=== PATIENT | female | born 2005 | race Caucasian/White ===

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

== ENCOUNTER 2023-03-26 01:03 | Emergency (ER) | payer OTHER, SELFPAY ==
[2023-03-26 01:05] VITALS: BP 140/82; PULSE 114; RESP 20; TEMP 37.3; O2SAT 97
[2023-03-26 01:50] LABS: Strep Group A RT-PCR NOT DETECTED (Negative)
[2023-03-26 02:02] LABS: SARS-CoV-2 RNA PCR Positive (Negative)
[2023-03-26 02:03] LABS: Influenza A QL RT-PCR Negative (Negative); Influenza B QL RT-PCR Negative (Negative); RSV RNA, RT-PCR Negative (Negative)
--- NOTE | 2023-03-26 02:09 | ED.URI ---
HPI - URI/Sore Throat General Chief Complaint: Upper Respiratory Infection Stated Complaint: fever Source: patient Mode of arrival: ambulatory Limitations: no limitations History of Present Illness HPI Narrative: Patient is a 18-year-old female with cough, congestion and sore throat. She has not been feeling well for the past 2 days. MD elicited complaint: cough and sore throat Onset (ago): day(s) (2) Consistency: constant Severity: moderate Description of mucous: clear Able to tolerate fluids by mouth: Yes Exacerbating factors: nothing Relieving factors: nothing Context: sick contacts Associated symptoms: myalgias, headache, nasal congestion, sore throat and cough Treatments prior to arrival: none Related Data Home Medications Medication Instructions Recorded Confirmed metformin 500 mg tablet 500 mg PO BID 04/04/21 03/26/23 spironolactone 50 mg tablet 50 mg PO DAILY 04/04/21 03/26/23 escitalopram oxalate 20 mg tablet 20 mg PO DAILY 03/26/23 03/26/23 Allergies Allergy/AdvReac Type Severity Reaction Status Date / Time midazolam Allergy Intermediate Unknown Verified 04/04/21 11:28 [email or web address] [From Omnicef] Allergy Unknown Verified 04/04/21 11:28 Penicillins Allergy Unknown Verified 04/04/21 11:28 phenobarbital Allergy Unknown Verified 04/04/21 11:28 Review of Systems Review of Systems: All systems reviewed & are unremarkable except as noted in HPI and below Constitutional: Constitutional: Reports no additional constitutional complaints Eyes: Eyes: Reports no additional eye complaints ENT: Reports system reviewed and no additional complaints, except as documented Cardiovascular: Cardiovascular: Reports no additional cardiovascular complaints Respiratory: Respiratory: Reports no additional respiratory complaints Gastrointestinal: Gastrointestinal: Reports no additional gastrointestinal complaints Genitourinary: Genitourinary: Reports no additional female genitourinary complaints Musculoskeletal: Musculoskeletal: Reports no additional musculoskeletal complaints Integumentary/Breasts: Skin/Breast: Reports system reviewed and no additional complaints, except as docu Neurologic: Reports system reviewed and no additional complaints, except as documented Psychiatric: Psychiatric: Reports no additional psychiatric complaints Endocrine: Endocrine: Reports no additional endocrine complaints Hematologic/Lymphatic: Hematologic/Lymphatic: Reports no additional hematologic/lymphatic complaints Allergic/Immunologic: Allergic/Immunologic: Reports no additional allergic/immunologic complaints PMFSH Past Medical History Medical History Ovarian cyst UTI (urinary tract infection) Exam Const: General: healthy appearing and no acute distress Nutritional Appearance: well nourished HENMT: Head: normal to inspection Ears: external ears normal Face/Nose/Sinus: Normal external nose present Eyes: Conjunctivae: conjunctivae normal Pupils: Equal, round and reactive pupils present EOM: EOMs intact bilaterally Neck: Neck: normal visual inspection Chest: Chest palpation & inspection: normal inspection of the chest Resp: Effort & Inspection: normal respiratory effort and not labored Auscultation: clear to auscultation bilaterally and no crackles Cardio: Rate: regular rate Rhythm: regular rhythm Heart sounds: no murmurs GI: Inspection: non-distended GI Palp: Yes Soft to palpation, No Tenderness to palpation present (GI) and No Guarding due to palpation present (GI) Auscultation: normal bowel sounds : General: Yes bladder normal to palpation Back/Spine/Pelvis: Back: no CVA tenderness Skin: General skin exam: normal color Rashes: no rashes Wounds: no wounds Neuro: General: patient oriented x3 Cranial nerves: Yes Nystagmus not present Speech: normal speech Extrem: General: normal to inspection Psych: Mental Status: mental status grossly normal
[2023-03-26 02:30] VITALS: BP 133/77; PULSE 100; RESP 18; TEMP 37.1; O2SAT 98
== END 2023-03-26 02:31 | disposition home or self-care (01) ==
PROVIDERS: Emergency Provider Emergency Medicine; PCP Family Medicine
DX: U07.1 COVID-19 (principal); Z79.84 Long term (current) use of oral hypoglycemic drugs; Z79.899 Other long term (current) drug therapy
CPT/HCPCS: 87637; 87651; 99283

== ENCOUNTER 2023-06-01 18:13 | Emergency (ER) | payer OTHER, SELFPAY ==
--- NOTE | ~2023-06-01 | XR_ITS ---
EXAMINATION: XR chest 2V DATE: 06/01/2023 21:27 INDICATION: Shortness of breath and dizziness TECHNIQUE: AP and lateral views of the chest are obtained. COMPARISON: 05/02/2013 FINDINGS: The lung volumes are low. The lungs are free of acute opacities. No pleural effusion or pne umothorax. The cardiomediastinal silhouette is normal. The visualized bones and soft tissues are unre markable. IMPRESSION: 1. No acute cardiopulmonary abnormality. Reviewed, dictated and finalized at [facility]. SICS TEACHER
[2023-06-01 19:01] VITALS: BP 137/83; PULSE 92; RESP 16; TEMP 36.4; O2SAT 100
[2023-06-01 20:29] VITALS: O2SAT 100
[2023-06-01 20:31] VITALS: BP 138/84; PULSE 83; RESP 18; O2SAT 100
--- NOTE | 2023-06-01 20:45 | ECG_ITS ---
Measurements Intervals [place] Rate: 87 P: 32 WI: 200 QRS: -6 QRSD: 98 T: 11 QT: 345 QTc: 417 Interpretive Statements SINUS RHYTHM BORDERLINE T WAVE ABNORMALITY- INFERIOR LEADS BORDERLINE ECG NO PREVIOUS ECG AVAILABLE FOR COMPARISON Electronically Signed On 06-02-2023 9:00:18 PARAEDUCATOR by Roger Rodriguez D.O.
--- NOTE | 2023-06-01 21:01 | ED.GENADULT ---
HPI - General Adult General Chief complaint: Shortness of Breath/Dyspnea Stated complaint: sob, dizzy Time Seen by Provider: 06/01/23 20:25 History of Present Illness HPI narrative: Patient is a 18-year-old female who presents ER with shortness of breath and feeling off. She recently has stopped her Lexapro and was switched to Effexor. She then stop that and has been started on bupropion. No depression or self-harm thoughts. No fevers or chills or sweats. No productive cough. She just feels like she is slower to respond to things. She is concerned she could be having allergic reaction. Related Data Home Medications Medication Instructions Recorded Confirmed metformin 500 mg tablet 500 mg PO BID 04/04/21 03/26/23 spironolactone 50 mg tablet 50 mg PO DAILY 04/04/21 03/26/23 escitalopram oxalate 20 mg tablet 20 mg PO DAILY 03/26/23 03/26/23 Allergies Allergy/AdvReac Type Severity Reaction Status Date / Time midazolam Allergy Intermediate Unknown Verified 06/01/23 20:32 [email or web address] [From Omnicef] Allergy Unknown Verified 06/01/23 20:32 Penicillins Allergy Unknown Verified 06/01/23 20:32 phenobarbital Allergy Unknown Verified 06/01/23 20:32 Review of Systems Review of Systems: All systems reviewed & are unremarkable except as noted in HPI and below Constitutional: Constitutional: Reports no additional constitutional complaints ENT: Reports system reviewed and no additional complaints, except as documented Cardiovascular: Cardiovascular: Reports no additional cardiovascular complaints Respiratory: Respiratory: Denies chest congestion, Denies cough, Reports dyspnea and Denies wheezing Gastrointestinal: Gastrointestinal: Reports no additional gastrointestinal complaints Neurologic: Denies syncope, Denies headache(s), Denies focal weakness and Denies numbness Comments: Lightheaded PMFSH Past Medical History Medical History (Updated 06/01/23 @ 21:59 by Hank Khan MD) Anxiety Ovarian cyst Polycystic ovarian syndrome UTI (urinary tract infection) Exam Narrative: GENERAL: Well-appearing, well-nourished, and in no acute distress. HEAD: Normocephalic, atraumatic. EYES: PERRL and EOMI. ENT: Mucous membranes moist. NECK: Supple. CHEST: Clear to auscultation. No respiratory distress. HEART: Regular rate and rhythm. Normal peripheral pulses. ABDOMEN: Soft, nontender, nondistended. EXTREMITIES: Normal range of motion. No edema. SKIN: Warm, dry, no rash. NEURO: Alert and oriented x3. PSYCH: Normal mood and affect. Course Course Emergency Course: imaging /EKG unremarkable. Blood work normal. Urinalysis may obtain a jiang but does have an appearance of UTI. Will be started on oral antibiotics for home. Vital Signs Vital signs: Vital Signs Temperature 97.6 F 06/01/23 19:01 Pulse Rate 92 06/01/23 19:01 Respiratory Rate 16 06/01/23 19:01 Blood Pressure 137/83 06/01/23 19:01 Pulse Oximetry 100 06/01/23 19:01 Oxygen Delivery Room Air 06/01/23 19:01 Temperature 97.6 F 06/01/23 19:01 Pulse Rate 83 06/01/23 20:31 Respiratory Rate 18 06/01/23 20:31 Blood Pressure 138/84 06/01/23 20:31 Pulse Oximetry 100 06/01/23 20:31 Oxygen Delivery Room Air 06/01/23 20:31 Medical Decision Making Vital Signs Vital Signs: Vital Signs Temperature 97.6 F 06/01/23 19:01 Pulse Rate 92 06/01/23 19:01 Respiratory Rate 16 06/01/23 19:01 Blood Pressure 137/83 06/01/23 19:01 Pulse Oximetry 100 06/01/23 19:01 Oxygen Delivery Room Air 06/01/23 19:01 Temperature 97.6 F 06/01/23 19:01 Pulse Rate 83 06/01/23 20:31 Respiratory Rate 18 06/01/23 20:31 Blood Pressure 138/84 06/01/23 20:31 Pulse Oximetry 100 06/01/23 20:31 Oxygen Delivery Room Air 06/01/23 20:31 Lab Data 06/01/23 21:07 06/01/23 21:07 Labs: Lab Results 06/01/23 06/01/23 Range/Units 20:55 21:07 WBC 9.7 (4.5-1
[2023-06-01] MEDS: SODIUM CHLORIDE 0.9% IV 1,000 ML 999 ML IV CONT (21:06)
[2023-06-01 21:15] LABS: Basophils Percent Auto 0.3 % (0.2-1.2); Eosinophils Absolute Auto 0.1 K/mm3 (0-0.3); Eosinophils Percent Auto 1.3 % (0-4.4); Hematocrit 38.6 % (37.0-47.0); Hemoglobin 12.4 g/dL (12.0-15.0); Immature Granulocyte Absolute 0.06 K/mm3 (0.00-0.031); Immature Granulocyte Percent A 0.6 % (0-0.5); Lymphocytes Absolute Auto 2.37 K/mm3 (0.9-3.2); Lymphocytes Percent Auto 24.4 % (18.3-44.2); Mean Corpuscular HGB Conc 32.1 g/dl (32-36); Mean Corpuscular Hemoglobin 29.2 pg (26-34); Mean Corpuscular Volume 90.8 fl (80-100); Mean Platelet Volume 10.5 fl (7.4-10.4); Monocytes Absolute Auto 0.9 K/mm3 (0.1-0.6); Monocytes Percent Auto 9.4 % (2.6-8.5); Neutrophils Absolute Auto 6.2 K/mm3 (1.3-6.7); Platelet Count Result 378 k/mm3 (150-375); Red Blood Count 4.25 M/mm3 (4.2-5.4); Red Cell Distribution Width 12.9 % (11.5-14.5); White Blood Count 9.7 K/mm3 (4.5-10.0)
[2023-06-01 21:24] LABS: Appearance Urine Cloudy (Clear); Bacteria Urine 4+ /hpf; Bilirubin Urine Negative (Negative); Blood Urine Negative (Negative); Color Urine Yellow (Yellow); Glucose Urine UA Negative (Negative); Ketones Urine Negative (Negative); Leukocyte Esterase Ur 2+ LEU/UL (Negative); Need Manual Microscopic Reviewed; Nitrate Urine Negative (Negative); Protein Urine Negative (Negative); Specific Grav Ur 1.024 (1.001-1.035); Squamous Epithelial Cell Urine Many /hpf (Few); Urobilinogen Urine 0.2 mg/dL (<2.0); WBC Urine 21-50 /hpf; pH Urine 5.5 (5.0-9.0)
[2023-06-01 21:25] LABS: Add Urine Microscopic? YES
[2023-06-01 21:27] LABS: Alanine Aminotransferase 33 U/L (6-35); Albumin Level 4.7 g/dL (3.5-5.1); Alkaline Phosphatase 76 U/L (38-126); Anion Gap 12 mmol/L (8-16); Aspartate Amino Transferase 30 U/L (14-36); Bilirubin,Total 0.3 mg/dL (0.2-1.3); Blood Urea Nitrogen 16 mg/dL (7-17); Calcium 9.8 mg/dL (8.4-10.2); Carbon Dioxide 25 mmol/L (22-30); Chloride 104 mmol/L (98-107); Estimated CRCL calculation 133 ml/min; Estimated Glomerular Filt Rate > 60; Glucose 91 mg/dL (65-110); Potassium 3.7 mmol/L (3.4-5.0); Sodium 141 mmol/L (137-145)
[2023-06-01 22:10] VITALS: BP 114/70; PULSE 90; RESP 18; O2SAT 98
== END 2023-06-01 22:20 | disposition home or self-care (01) ==
PROVIDERS: Emergency Provider Emergency Medicine; PCP Family Medicine
DX: N39.0 Urinary tract infection, site not specified (principal); E28.2 Polycystic ovarian syndrome; F41.9 Anxiety disorder, unspecified; Z87.440 Personal history of urinary (tract) infections; Z79.84 Long term (current) use of oral hypoglycemic drugs; R94.31 Abnormal electrocardiogram [ECG] [EKG]
CPT/HCPCS: 36415; 71046; 80053; 81001; 81025; 85025; 87086; 87088; 93005; 96360; 99283; J7030

== ENCOUNTER 2023-08-19 13:41 | Emergency (ER) | payer OTHER, SELFPAY ==
--- NOTE | ~2023-08-19 | CT_ITS ---
EXAMINATION: CT abdomen pelvis wo con DATE: 08/19/2023 15:19 INDICATION: kidney stone TECHNIQUE: Computed tomography (CT) of the abdomen and pelvis was performed without intravenous contr ast. Automated exposure control and iterative reconstruction technique were employed. The dose-length product was 1334.01 mGy-cm. COMPARISON: 04/04/2021. FINDINGS: Lower thorax: Unremarkable Liver: Normal. Biliary/Gallbladder: Gallbladder is normal. No bile duct dilation. Pancreas: No mass or duct dilation. Spleen: Normal. Adrenals:No mass. Kidneys: No suspicious mass, obstructing stone, or hydronephrosis. Medullary nephric calcinosis. GI tract: No small or large bowel dilation. Normal appendix. Mesentery/Peritoneum: No ascites, mass, or free air. Retroperitoneum: No mass. Pelvis: Pelvic organs are within normal limits. Soft Tissues: Soft tissues and body wall unremarkable. Bones: No acute osseous finding. IMPRESSION: No acute abdominopelvic process detected. Reviewed, dictated and finalized at [facility].
[2023-08-19 13:48] VITALS: BP 140/93; PULSE 92; RESP 16; TEMP 36.8; O2SAT 97
--- NOTE | 2023-08-19 14:27 | ED.GENADULT ---
HPI - General Adult General Chief complaint: Back Pain/Injury Stated complaint: left flank pain Time Seen by Provider: 08/19/23 13:53 History of Present Illness HPI narrative: Fior Potter is a 18 y/o female who presents with reports of having left flank pain wrapping around to her left lower abdomen that started to feel worse today. She states that she had dysuria/ urinary urgency that stated Sunday she went to her PCP the following Sunday on the and was put on Macrobid for a UTI on Sunday the 4 days ago- and she states her symptoms really haven't improved and she is having new left flank pain Related Data Home Medications Medication Instructions Recorded Confirmed metformin 500 mg tablet 500 mg PO BID 04/04/21 03/26/23 spironolactone 50 mg tablet 50 mg PO DAILY 04/04/21 03/26/23 escitalopram oxalate 20 mg tablet 20 mg PO DAILY 03/26/23 03/26/23 Allergies Allergy/AdvReac Type Severity Reaction Status Date / Time midazolam Allergy Intermediate Unknown Verified 06/01/23 20:32 [email or web address] [From Omnicef] Allergy Unknown Verified 06/01/23 20:32 Penicillins Allergy Unknown Verified 06/01/23 20:32 phenobarbital Allergy Unknown Verified 06/01/23 20:32 Review of Systems Review of Systems: All systems reviewed & are unremarkable except as noted in HPI and below PMFSH Past Medical History Medical History Anxiety Ovarian cyst Polycystic ovarian syndrome UTI (urinary tract infection) Exam Narrative: GENERAL: Well-appearing, well-nourished, and in no acute distress. HEAD: Normocephalic, atraumatic. EYES: PERRLA and EOMI. ENT: Nares clear, no rhinorrhea or epistaxis. Mucous membranes moist. Oropharynx without tonsillar hypertrophy exudate or other lesions. NECK: Supple. No adenopathy or masses. No carotid bruits or JVD CHEST: Clear to auscultation. No respiratory distress. No wheezes rales or rhonchi HEART: Regular rate and rhythm. No murmur heard. Normal peripheral pulses. ABDOMEN: Soft, nondistended, normal active bowel sounds. + left CVA tenderness / left side of abdomen pain EXTREMITIES: Normal range of motion. No edema. SKIN: Warm, dry, no rash. NEURO: No focal deficits. Alert and oriented x3. PSYCH: Normal mood and affect. Course Vital Signs Vital signs: Vital Signs Temperature 36.8 C 08/19/23 13:48 Pulse Rate 92 08/19/23 13:48 Respiratory Rate 16 08/19/23 13:48 Blood Pressure 140/93 H 08/19/23 13:48 Pulse Oximetry 97 08/19/23 13:48 Oxygen Delivery Room Air 08/19/23 13:48 Temperature 36.8 C 08/19/23 13:48 Pulse Rate 92 08/19/23 13:48 Respiratory Rate 16 08/19/23 13:48 Blood Pressure 140/93 H 08/19/23 13:48 Pulse Oximetry 97 08/19/23 13:48 Oxygen Delivery Room Air 08/19/23 13:48 Medical Decision Making MDM Narrative Medical decision making narrative: 18 y/o with urinary symptoms for 9 days and she was started on PO Macrobid for a UTI 4 days ago and now having new left flank pain that is wrapping around to her left side. Last BM was today/ no nausea/vomiting pain 4/10 Concern for UTI/ Pyelonephritis/ kidney stone/ obstructing stone/ constipation Plan to check UA/ labs/ CT ab/pelv non con - looking for stone / pyelo - shes on metformin will avoid contrast for now Labs concern for UTI CT - unremarkable Plan to d/c home with new antibiotics to cover pyelonephritis Cipro BID for 1 week Encouraged PO hydration Tylenol / Motrin for pain Close follow up with PCP Return precautions provided Medical Records Medical records reviewed: Yes I reviewed the external patient's medical records. Vital Signs Vital Signs: Vital Signs Temperature 36.8 C 08/19/23 13:48 Pulse Rate 92 08/19/23 13:48 Respiratory Rate 16 08/19/23 13:48 Blood Pressure 140/93 H 08/19/23 13:48 Pulse Oximetry 97 08/19/23 13:48 Oxygen Delivery Room Air 08/19/23 13:48
[2023-08-19] MEDS: SODIUM CHLORIDE 0.9% IV 1,000 ML 999 ML IV CONT (14:40)
[2023-08-19] MEDS: ONDANSETRON INJ 4 MG/2 ML VIAL IV PUSH (14:40)
[2023-08-19] MEDS: KETOROLAC 30 MG/ML VIAL (*BKC) IV PUSH (14:40)
[2023-08-19] MEDS: FAMOTIDINE 20 MG/2 ML VIAL IV PUSH (14:40)
[2023-08-19 14:52] LABS: Basophils Percent Auto 0.5 % (0.2-1.2); Eosinophils Absolute Auto 0.1 K/mm3 (0-0.3); Eosinophils Percent Auto 0.6 % (0-4.4); Hematocrit 38.5 % (37.0-47.0); Hemoglobin 12.9 g/dL (12.0-15.0); Immature Granulocyte Absolute 0.05 K/mm3 (0.00-0.031); Immature Granulocyte Percent A 0.6 % (0-0.5); Lymphocytes Absolute Auto 1.05 K/mm3 (0.9-3.2); Lymphocytes Percent Auto 12.2 % (18.3-44.2); Mean Corpuscular HGB Conc 33.5 g/dl (32-36); Mean Corpuscular Hemoglobin 28.8 pg (26-34); Mean Corpuscular Volume 85.9 fl (80-100); Mean Platelet Volume 10.2 fl (7.4-10.4); Monocytes Absolute Auto 0.9 K/mm3 (0.1-0.6); Monocytes Percent Auto 10.1 % (2.6-8.5); Neutrophils Absolute Auto 6.6 K/mm3 (1.3-6.7); Platelet Count Result 331 k/mm3 (150-375); Red Blood Count 4.48 M/mm3 (4.2-5.4); White Blood Count 8.6 K/mm3 (4.5-10.0)
[2023-08-19 14:58] LABS: Appearance Urine Clear (Clear); Bacteria Urine Rare /hpf; Bilirubin Urine Negative (Negative); Blood Urine Non-Hemolyzed Trace (Negative); Color Urine Dark Yellow (Yellow); Glucose Urine UA Negative (Negative); Ketones Urine Negative (Negative); Leukocyte Esterase Ur 2+ LEU/UL (Negative); Nitrate Urine Positive (Negative); Non Pathogenic Casts 0-2; Protein Urine Negative (Negative); RBC Urine 0-2 /hpf (0-2); Specific Grav Ur 1.014 (1.001-1.035); Squamous Epithelial Cell Urine Few /hpf (Few)
[2023-08-19 15:04] LABS: Add Urine Microscopic? YES
[2023-08-19 15:10] LABS: Alanine Aminotransferase 27 U/L (6-35); Albumin Level 4.9 g/dL (3.5-5.1); Alkaline Phosphatase 73 U/L (38-126); Anion Gap 10 mmol/L (4-12); Aspartate Amino Transferase 24 U/L (14-36); Bilirubin,Total 0.6 mg/dL (0.2-1.3); Blood Urea Nitrogen 13 mg/dL (7-17); Calcium 9.5 mg/dL (8.4-10.2); Carbon Dioxide 26 mmol/L (22-30); Chloride 104 mmol/L (98-107); Estimated CRCL calculation 131 ml/min; Estimated Glomerular Filt Rate > 60; Glucose 94 mg/dL (65-110); Potassium 3.8 mmol/L (3.4-5.0); Sodium 140 mmol/L (137-145)
== END 2023-08-19 16:21 | disposition home or self-care (01) ==
PROVIDERS: Emergency Provider Nurse Practitioner Family; PCP Family Medicine
DX: N30.01 Acute cystitis with hematuria (principal); N12 Tubulo-interstitial nephritis, not specified as acute or chronic; F41.9 Anxiety disorder, unspecified; Z87.440 Personal history of urinary (tract) infections
CPT/HCPCS: 36415; 74176; 80053; 81001; 81025; 85025; 87086; 87088; 96361; 96374; 96375; 99284; J1885; J2405; J7030

== ENCOUNTER 2023-12-06 16:02 | Outpatient (CLI) | payer OTHER, SELFPAY ==
[2023-12-06 16:24] LABS: Basophils Absolute Auto 0.03 K/mm3 (0.00-0.10); Basophils Percent Auto 0.3 % (0.0-1.0); Hematocrit 36.2 % (35.0-49.0); Hemoglobin 12.2 g/dL (12.0-15.0); Immature Granulocyte Absolute 0.05 K/mm3 (0.00-0.00); Immature Granulocyte Percent A 0.5 % (0.0-0.0); Lymphocytes Absolute Auto 1.66 K/mm3 (1.10-4.50); Lymphocytes Percent Auto 16.9 % (18.0-42.0); Mean Corpuscular HGB Conc 33.7 g/dL (32-36); Mean Corpuscular Hemoglobin 29.4 pg (27.0-31.0); Mean Corpuscular Volume 87.2 fL (78.0-102.0); Mean Platelet Volume 10.1 fl (9.2-11.8); Monocytes Absolute Auto 0.72 K/mm3 (0.10-0.90); Monocytes Percent Auto 7.3 % (2.0-11.0); Neutrophils Absolute Auto 7.26 K/mm3 (1.70-7.20); Platelet Count Result 323 K/mm3 (150-420); Red Blood Count 4.15 M/mm3 (4.20-5.40); White Blood Count 9.8 K/mm3 (4.8-10.8)
[2023-12-07 09:12] LABS: Alanine Aminotransferase 26 U/L (6-35); Albumin Level 4.3 g/dL (3.5-5.1); Alkaline Phosphatase 79 U/L (38-126); Anion Gap 12 mmol/L (4-12); Aspartate Amino Transferase 24 U/L (14-36); Bilirubin,Total 0.4 mg/dL (0.2-1.3); Blood Urea Nitrogen 13 mg/dL (7-17); Calcium 9.5 mg/dL (8.4-10.2); Carbon Dioxide 26 mmol/L (22-30); Chloride 102 mmol/L (98-107); Estimated Glomerular Filt Rate > 60; Glucose 81 mg/dL (65-110); Osmolality Calculated 289 mOsm/kg (285-295); Potassium 4.2 mmol/L (3.4-5.0); Sodium 140 mmol/L (137-145)
[2023-12-08 06:23] LABS: DHEA-Sulfate 367 mcg/dL (44-286); FSH 6.9 mIU/mL; LH 5.4 mIU/mL; Prolactin 7.7 ng/mL
[2023-12-10 12:58] LABS: Testosterone Total 14 ng/dL (2-45)
[2023-12-13 16:25] LABS: Estrogen 136 pg/mL
== END 2023-12-06 16:03 | disposition home or self-care (01) ==
LOC: CHSLAB 16:04
PROVIDERS: PCP Family Medicine; Visit Provider Family Medicine
DX: E28.2 Polycystic ovarian syndrome (principal)
CPT/HCPCS: 36415; 80053; 82627; 82672; 83001; 83002; 83498; 84146; 84403; 84443; 85025